=== PATIENT | male | born 1985 | race Caucasian/White ===

== ENCOUNTER → 2017-01-11 | Outpatient (REF) | payer MEDICARE, MEDICAID ==
[2017-01-11 12:17] LABS: ALBUMIN 3.8 GM/DL (3.2-5.2); ALBUMIN/GLOBULIN RATIO 1.06 (1.00-1.93); ALKALINE PHOSPHATASE 104 U/L (45-117); ALT/SGPT 81 U/L (12-78); ANION GAP 9 MEQ/L (8-16); AST/SGOT 34 U/L (15-37); BILIRUBIN,TOTAL 0.3 MG/DL (0.2-1.0); BLOOD UREA NITROGEN 22 MG/DL (7-18); CALCIUM LEVEL 9.4 MG/DL (8.5-10.1); CARBON DIOXIDE LEVEL 27 MEQ/L (21-32); CHLORIDE LEVEL 108 MEQ/L (98-107); CHOLESTEROL LEVEL 232 MG/DL (<200); CREATININE FOR GFR 1.14 MG/DL (0.70-1.30); FREE T4 0.87 NG/DL (0.76-1.46); GLOMERULAR FILTRATION RATE > 60.0 (>60); GLUCOSE, FASTING 87 MG/DL (70-105); POTASSIUM SERUM 4.5 MEQ/L (3.5-5.1); SODIUM LEVEL 144 MEQ/L (136-145); TOTAL PROTEIN 7.4 GM/DL (6.4-8.2); TRIGLYCERIDES LEVEL 156 MG/DL (<150)
== END ==
LOC: M SFHCCLAY 08:52
PROVIDERS: ATTEND Family Medicine
DX: E20.9 Hypoparathyroidism, unspecified (principal); N39.44 Nocturnal enuresis; Z79.899 Other long term (current) drug therapy
CPT/HCPCS: 80053; 80061; 81001; 84439; 84443; 87086; G0463

== ENCOUNTER → 2020-12-15 | Outpatient (REF) | payer MEDICARE ==
[2020-12-15 11:18] LABS: BASO # 0.1 10^3/uL (0.0-0.2); BASO % 0.7 % (0.0-1.0); EOS # 0.2 10^3/uL (0.0-0.5); EOS % 2.2 % (0.0-3.0); HEMATOCRIT 48.8 % (42.0-52.0); LYMPH # 2.7 10^3/uL (1.5-5.0); LYMPH % 36.7 % (24.0-44.0); MEAN CORPUSCULAR HEMOGLOBIN 29.5 pg (27.0-33.0); MEAN CORPUSCULAR HGB CONC 32.8 g/dl (32.0-36.5); MONO # 0.5 10^3/uL (0.0-0.8); MONO % 6.7 % (2.0-8.0); NEUTROPHILS % 53.4 % (36.0-66.0); PLATELET COUNT, AUTOMATED 267 10^3/uL (150-450); RED BLOOD COUNT 5.42 10^6/uL (4.30-6.10); WHITE BLOOD COUNT 7.4 10^3/uL (4.0-10.0)
[2020-12-15 12:12] LABS: ALBUMIN 4.4 GM/DL (3.2-5.2); ALT/SGPT 133 U/L (12-78); BILIRUBIN,TOTAL 0.5 MG/DL (0.2-1.0); BLOOD UREA NITROGEN 25 MG/DL (7-18); CARBON DIOXIDE LEVEL 28 MEQ/L (21-32); CHLORIDE LEVEL 108 MEQ/L (98-107); CHOLESTEROL LEVEL 283 MG/DL (<200); CREATININE FOR GFR 1.12 MG/DL (0.70-1.30); FREE T4 0.86 NG/DL (0.76-1.46); GLOMERULAR FILTRATION RATE > 60.0 (>60); GLUCOSE, FASTING 86 MG/DL (70-100); HDL CHOLESTEROL 54 MG/DL (>40); LDL CHOLESTEROL 195 MG/DL (<100); NON-HDL-C 229 MG/DL; POTASSIUM SERUM 5.2 MEQ/L (3.5-5.1); SODIUM LEVEL 141 MEQ/L (136-145); TRIGLYCERIDES LEVEL 170 MG/DL (<150)
[2020-12-15 13:37] LABS: HEMOGLOBIN A1c 5.4 %
== END ==
LOC: M SFHCCLAY 09:05
PROVIDERS: ATTEND Nurse Practitioner Family
DX: E20.1 Pseudohypoparathyroidism (principal); Z13.1 Encounter for screening for diabetes mellitus
CPT/HCPCS: 80053; 80061; 83036; 83970; 84439; 84443; 85025; G0463

== ENCOUNTER 2023-01-17 14:33 | Emergency (ER) | payer MEDICARE, MEDICAID ==
[~2023-01-17] VITALS: Ht 165.1 cm; Wt 79.5 kg
[~2023-01-17 14:33] MED LIST: ACET300T48; FAMO20TA5; LIDO1PAD; ONDA8TAB8; OXYC1SOL3 PO
[2023-01-17 16:09] LABS: APPEARANCE, URINE CLEAR (CLEAR); BACTERIA, URINE AUTO NEGATIVE (NEGATIVE); BILIRUBIN, URINE AUTO NEGATIVE (NEGATIVE); BLOOD, URINE BLOOD NEGATIVE (NEGATIVE); COLOR, URINE YELLOW (YELLOW); GLUCOSE, URINE (UA) AUTO NEGATIVE (NEGATIVE); KETONE, URINE AUTO NEGATIVE (NEGATIVE); LEUKOCYTE ESTERASE, URINE AUTO NEGATIVE (NEGATIVE); MUCUS, URINE SMALL (NEGATIVE); NITRITE, URINE AUTO NEGATIVE (NEGATIVE); PROTEIN, URINE AUTO NEGATIVE (NEGATIVE); RBC, URINE AUTO 1 /HPF (0-3); SPECIFIC GRAVITY URINE AUTO 1.017 (1.002-1.035); SQUAMOUS EPITHELIAL CELL UR AU 0 /HPF (0-6); UROBILINOGEN, URINE AUTO 0.2 mg/dL (0.0-2.0); WBC, URINE AUTO 1 /HPF (0-3)
[2023-01-17 16:15] LABS: BASO % 0.3 % (0.0-1.0); EOS # 0.1 10^3/uL (0.0-0.5); EOS % 1.5 % (0.0-3.0); HEMATOCRIT 48.2 % (42.0-52.0); LYMPH # 1.7 10^3/uL (1.5-5.0); MEAN CORPUSCULAR HEMOGLOBIN 29.4 pg (27.0-33.0); MEAN CORPUSCULAR HGB CONC 33.2 g/dl (32.0-36.5); MEAN CORPUSCULAR VOLUME 88.6 fl (80.0-96.0); MONO # 0.8 10^3/uL (0.0-0.8); MONO % 8.7 % (2.0-8.0); NEUTROPHILS # 6.1 10^3/uL (1.5-8.5); NEUTROPHILS % 70.3 % (36.0-66.0); PLATELET COUNT, AUTOMATED 378 10^3/uL (150-450); RED BLOOD COUNT 5.44 10^6/uL (4.30-6.10); WHITE BLOOD COUNT 8.7 10^3/uL (4.0-10.0)
[2023-01-17 16:28] LABS: LIPASE 44 U/L (12-53)
[2023-01-17 16:30] LABS: ALKALINE PHOSPHATASE 80 U/L (46-116); ALT/SGPT 57 U/L (7.0-40); AST/SGOT < 8 U/L (<34); BILIRUBIN,DIRECT 0.2 MG/DL (<0.4); BILIRUBIN,TOTAL 0.7 MG/DL (0.3-1.2)
[2023-01-17] MEDS ORDERED: KETOROLAC 30 MG/ML 1ML VIAL IV ONE (18:05)
[2023-01-17] MEDS ORDERED: METHOCARBAMOL 1,000 MG/10 ML VIAL IV ONE (18:05)
[2023-01-17] MEDS ORDERED: methylPREDNISolone 125MG 2ML VIAL IV ONE (22:20)
[2023-01-17 23:40] VITALS: TEMP 98.3
[2023-01-17 23:56] VITALS: BP 102/64; O2SAT 98
[2023-01-25] MEDS ORDERED: OXYC1SOL3 PO (12:39)
[2023-01-25] MEDS ORDERED: GABA-1171 PO (12:39)
[2023-01-25] MEDS ORDERED: MIRT1TAB PO (12:39)
[2023-01-25] MEDS ORDERED: LIDO1PAD TOP (12:46)
== END 2023-01-18 00:01 | disposition short-term general hospital (02) ==
LOC: M ED 14:33
DX: M51.24 Other intervertebral disc displacement, thoracic region (principal); F88 Other disorders of psychological development; Z79.899 Other long term (current) drug therapy
CPT/HCPCS: 72146; 72148; 80047; 80076; 81001; 83690; 85025; 96374; 96375; 99284; J1885; J2800; J2930

== ENCOUNTER → 2023-01-25 | Outpatient (CLI) | payer MEDICARE, MEDICAID ==
[~2023-01-25] MED LIST changes: +GABA-1171 PO; +LIDO1PAD TOP; +MIRT1TAB PO
== END ==
LOC: M PAL 10:58
PROVIDERS: ATTEND Nurse Practitioner Adult Health
DX: R59.1 Generalized enlarged lymph nodes (principal); Z51.5 Encounter for palliative care; M54.9 Dorsalgia, unspecified; R62.50 Unspecified lack of expected normal physiological development in childhood; M48.061 Spinal stenosis, lumbar region without neurogenic claudication; M51.27 Other intervertebral disc displacement, lumbosacral region; M51.24 Other intervertebral disc displacement, thoracic region; K59.00 Constipation, unspecified; R53.83 Other fatigue; Z79.899 Other long term (current) drug therapy; R11.0 Nausea; Z80.42 Family history of malignant neoplasm of prostate

== ENCOUNTER 2023-03-01 09:03 | Day surgery (SDC) | payer MEDICARE, MEDICAID ==
[~2023-03-01] VITALS: Ht 167.6 cm; Wt 75.6 kg
[~2023-03-01 09:03] MED LIST changes: +LIDOCAINE 2% 100MG/5ML SDV (FOR ANES.) As Ordered ONE; +MIDAZOLAM INJ 2MG/2ML VIAL As Ordered ONE; +ONDANSETRON 4MG 2ML VIAL As Ordered ONE; +ROCURONIUM BROMIDE 50MG/5ML VIAL As Ordered ONE; +fentaNYL 100 MCG/2 ML INJECTION As Ordered ONE; +propofoL 200 MG/20 ML VIAL As Ordered ONE
[2023-03-01] MEDS ORDERED: LR 1,000 ML IV SCH ×2 (09:20→12:10)
[2023-03-01] MEDS ORDERED: THROMBIN 5,000 UNITS VIAL As Ordered ONE (10:45)
[2023-03-01] MEDS ORDERED: EPINEPHrine 1MG/10ML SYRINGE 1.5IN As Ordered ONE (10:45)
[2023-03-01] MEDS ORDERED: CETACAINE SPRAY 5GM As Ordered ONE (10:45)
[2023-03-01] MEDS ORDERED: SUGAMMADEX SODIUM 500 MG/5 ML VIAL (BRIDION) As Ordered ONE ×2 (11:51→13:02)
[2023-03-01] MEDS ORDERED: oxyCODONE 5MG TAB PO PRN (12:10)
[2023-03-01] MEDS ORDERED: HYDROMORPHONE HCL 0.5 MG/ 0.5 ML SYRINGE IV PRN (12:10)
[2023-03-01] MEDS ORDERED: ONDANSETRON 4MG 2ML VIAL IV PRN (12:10)
[2023-03-01] MEDS ORDERED: fentaNYL 100 MCG/2 ML INJECTION IV PRN (12:10)
[2023-03-01] MEDS ORDERED: PHENYLephrine 500MCG 5ML (100MCG/ML) SYRINGE As Ordered ONE (12:56)
[2023-03-01] MEDS ORDERED: ACETAMINOPHEN 1000MG 100ML IV BAG As Ordered ONE (12:58)
[2023-03-01 13:20] VITALS: BP 119/73; TEMP 98.2; O2SAT 97
== END 2023-03-01 13:20 | disposition home or self-care (01) ==
LOC: M SDC 09:03
PROVIDERS: ATTEND Internal Medicine Critical Care Medicine
DX: R59.0 Localized enlarged lymph nodes (principal)
CPT/HCPCS: 31633; 31652; 71045; 88173; 88305; J0131; J1100; J2250; J2371; J2405; J3010

== ENCOUNTER → 2023-05-26 | Outpatient (CLI) | payer MEDICAID, MEDICARE ==
[~2023-05-26] MED LIST changes: -LIDOCAINE 2% 100MG/5ML SDV (FOR ANES.) As Ordered ONE; -MIDAZOLAM INJ 2MG/2ML VIAL As Ordered ONE; -ONDANSETRON 4MG 2ML VIAL As Ordered ONE; -ROCURONIUM BROMIDE 50MG/5ML VIAL As Ordered ONE; -fentaNYL 100 MCG/2 ML INJECTION As Ordered ONE; -propofoL 200 MG/20 ML VIAL As Ordered ONE
== END ==
LOC: M PLAIMG 11:18
PROVIDERS: ATTEND Internal Medicine Critical Care Medicine
DX: D86.1 Sarcoidosis of lymph nodes (principal)